=== PATIENT | male | born 1935 | race Caucasian/White ===

== ENCOUNTER 2018-02-21 20:36 | Emergency (ER) | payer OTHER ==
[~2018-02-21] VITALS: Ht 175.3 cm; Wt 79.4 kg
[~2018-02-21 20:36] MED LIST: FINA5TAB4 PO; IRBE150T28 PO
[2018-02-21 21:23] LABS: INR 0.84 (0.85-1.15)
[2018-02-21 21:25] LABS: CALCIUM, SERUM 9.5 mg/dL (8.5-10.1); CARBON DIOXIDE 29 mmol/L (21-32); CHLORIDE 102 mmol/L (98-107); CREATININE 0.8 mg/dL (0.6-1.3); GLUCOSE 107 mg/dL (74-106); POTASSIUM 4.1 mmol/L (3.5-5.1); SODIUM SERUM 138 mmol/L (136-145); UREA NITROGEN, BLOOD 19 mg/dL (7-18)
[2018-02-21] MEDS ORDERED: MECLIZINE HCL 25 MG TABLET PO ONE (22:00)
[2018-02-21 22:06] LABS: BASOPHILS % (AUTO) 0.3 % (0.0-2.0); EOSINOPHILS % (AUTO) 2.6 % (0.0-6.0); HEMATOCRIT 39 % (39-51); HEMOGLOBIN 13.5 g/dL (13.5-17.5); LYMPHOCYTES # (AUTO) 2.6 /CMM (0.8-4.8); LYMPHOCYTES % (AUTO) 22.4 % (20.0-44.0); MEAN CORPUSCULAR HGB CONC 35 g/dl (31.0-36.0); MEAN CORPUSCULAR VOLUME 94 fL (80-96); MONOCYTES % (AUTO) 8.9 % (2.0-12.0); NEUTROPHILS # (AUTO) 7.5 /CMM (1.8-8.9); NEUTROPHILS % (AUTO) 65.8 % (43.0-81.0); PLATELET COUNT (AUTO) 300 /CMM (150-450); RED BLOOD CELL COUNT(AUTO) 4.12 MIL/uL (4.5-6.0); WHITE BLOOD COUNT (AUTO) 11.4 K/uL (4.3-11.0)
[2018-02-21] MEDS ORDERED: MECLIZINE HCL 25 MG TABLET ONE (22:11)
[2018-02-21 22:23] VITALS: BP 147/69
== END 2018-02-21 22:24 | disposition home or self-care (01) ==
LOC: ER 20:44
DX: R42 Dizziness and giddiness (principal); E78.5 Hyperlipidemia, unspecified; I10 Essential (primary) hypertension; N40.0 Benign prostatic hyperplasia without lower urinary tract symptoms; Z88.8 Allergy status to other drugs, medicaments and biological substances; Z60.2 Problems related to living alone
CPT/HCPCS: 36415; 70450-TC; 80048-TC; 85025-TC; 85730-TC; A4606; J8597; Z7610

== ENCOUNTER 2019-01-08 11:42 | Emergency (ER) | payer OTHER ==
[~2019-01-08] VITALS: Ht 175.3 cm; Wt 84.4 kg
--- NOTE | 2019-01-08 12:35 | NUR ---
PT IV LINE ESTABLISHED, LABS DRAWNED AND SENT TO LAB.
[2019-01-08 12:56] LABS: BASOPHILS # (AUTO) 0.1 /CMM (0.0-0.2); BASOPHILS % (AUTO) 0.6 % (0.0-2.0); EOSINOPHILS % (AUTO) 1.4 % (0.0-6.0); HEMATOCRIT 40 % (39-51); HEMOGLOBIN 13.7 g/dL (13.5-17.5); LYMPHOCYTES % (AUTO) 19.1 % (20.0-44.0); MEAN CORPUSCULAR HGB CONC 34 g/dl (31.0-36.0); MEAN CORPUSCULAR VOLUME 97 fL (80-96); MONOCYTES % (AUTO) 9.9 % (2.0-12.0); NEUTROPHILS # (AUTO) 7.1 /CMM (1.8-8.9); PLATELET COUNT (AUTO) 297 /CMM (150-450); WHITE BLOOD COUNT (AUTO) 10.3 K/uL (4.3-11.0)
--- NOTE | 2019-01-08 13:06 | NUR ---
PT IS WHEELED TO CT SCAN VIA [facility].
[2019-01-08 13:07] LABS: CALCIUM, SERUM 9.5 mg/dL (8.5-10.1); CARBON DIOXIDE 31 mmol/L (21-32); CHLORIDE 105 mmol/L (98-107); CREATININE 0.9 mg/dL (0.6-1.3); GLUCOSE 91 mg/dL (74-106); POTASSIUM 4.2 mmol/L (3.5-5.1); SODIUM SERUM 139 mmol/L (136-145); UREA NITROGEN, BLOOD 21 mg/dL (7-18)
[2019-01-08 14:56] VITALS: BP 140/59
--- NOTE | 2019-01-08 14:56 | NUR ---
IV removed. Catheter intact and site benign. Pressure and 4x4 applied to site. No bleeding noted.Patient discharged to home in stable condition. Written and verbal after care instructions given. Patient verbalizes understanding of instruction.
== END 2019-01-08 14:57 | disposition home or self-care (01) ==
LOC: ER 11:46
DX: R51 Headache (principal); N40.0 Benign prostatic hyperplasia without lower urinary tract symptoms; F10.10 Alcohol abuse, uncomplicated; R00.1 Bradycardia, unspecified; Y90.9 Presence of alcohol in blood, level not specified; Z60.2 Problems related to living alone; Z98.890 Other specified postprocedural states; Z88.8 Allergy status to other drugs, medicaments and biological substances
CPT/HCPCS: 36415; 70450-TC; 80048-TC; 84484-TC; 85025-TC; 85652-TC

== ENCOUNTER 2021-12-16 03:46 | Emergency (ER) | payer OTHER ==
[~2021-12-16] VITALS: Ht 167.6 cm; Wt 70.8 kg
[2021-12-16 03:50] VITALS: BP 166/98
[2021-12-16] MEDS ORDERED: LIDOCAINE 2% JEL UROJET 10 ML MM ONE (03:55)
--- NOTE | 2021-12-16 04:06 | NUR ---
Fr 16 F/C INSERTED, YELLOW CLEAR URINE OUTPUT. URINE SAMPLE SENT TO LAB
--- NOTE | 2021-12-16 04:08 | NUR ---
URINE OUTPUT 450CC
--- NOTE | 2021-12-16 05:15 | NUR ---
Patient discharged to home in stable condition. Written and verbal after care instructions given. Patient verbalizes understanding of instruction. Pt ambulatory with a steady gait
[2021-12-16] MEDS ORDERED: CEPH500C2 PO ×2 (13:40→13:52)
== END 2021-12-16 05:15 | disposition home or self-care (01) ==
LOC: ER 03:49
DX: R33.9 Retention of urine, unspecified (principal); N40.0 Benign prostatic hyperplasia without lower urinary tract symptoms; I49.9 Cardiac arrhythmia, unspecified; Z87.710 Personal history of (corrected) hypospadias; Z88.8 Allergy status to other drugs, medicaments and biological substances; Z88.5 Allergy status to narcotic agent; Z79.811 Long term (current) use of aromatase inhibitors
CPT/HCPCS: J3490

== ENCOUNTER 2021-12-16 09:56 | Emergency (ER) | payer OTHER ==
[~2021-12-16] VITALS: Ht 175.3 cm; Wt 72.6 kg
--- NOTE | 2021-12-16 10:07 | NUR ---
LEAKING F/C CATHETER, REQUESTING F/C CHANGE
[2021-12-16 12:11] LABS: BILIRUBIN,URINE NEGATIVE (NEGATIVE); COLOR,URINE AMBER (YELLOW); LEUKOCYTE ESTERASE ,URINE SMALL (NEGATIVE); NITRITE, URINE POSITIVE (NEGATIVE); PH,URINE 6.5 (5.0-8.0); PROTEIN,URINE >=300 mg/dl (NEGATIVE); UGLUCOSE 100 MG/DL mg/dL (NEGATIVE)
[2021-12-16 13:15] LABS: RBC,URINE TOO NUMEROUS TO COUN /HPF (0-2)
[2021-12-16 13:16] LABS: BACTERIA,URINE None seen /HPF (None Seen); SQUAMOUS EPITHELIAL CELL,UR Rare /HPF (None Seen)
[2021-12-16] MEDS ORDERED: CEPH500C2 PO ×2 (13:40→13:52)
[2021-12-16] MEDS ORDERED: CEPHALEXIN MONOHYDRATE 500 MG CAPSULE PO ONE (14:00)
[2021-12-16 14:06] VITALS: BP 142/83
--- NOTE | 2021-12-16 14:06 | NUR ---
Patient discharged to home in stable condition. Written and verbal after care instructions given. Patient verbalizes understanding of instruction.
== END 2021-12-16 14:16 | disposition home or self-care (01) ==
LOC: ER 09:58
DX: T83.038A Leakage of other urinary catheter, initial encounter (principal); R33.9 Retention of urine, unspecified; N39.0 Urinary tract infection, site not specified; I49.9 Cardiac arrhythmia, unspecified; N40.0 Benign prostatic hyperplasia without lower urinary tract symptoms; Z88.8 Allergy status to other drugs, medicaments and biological substances; Z88.5 Allergy status to narcotic agent; Z79.811 Long term (current) use of aromatase inhibitors; Z79.818 Long term (current) use of other agents affecting estrogen receptors and estrogen levels
CPT/HCPCS: 81001; 87086-TC

== ENCOUNTER 2021-12-21 10:49 | Emergency (ER) | payer OTHER ==
[~2021-12-21] VITALS: Ht 170.2 cm; Wt 74.8 kg
[~2021-12-21 10:49] MED LIST changes: +CEPH500C2 PO
[2021-12-21 11:07] VITALS: BP 134/81
[2021-12-21] MEDS ORDERED: BACI/NEOM/POLY B OINT PKT 1 UDPKT PACKET TP ONE (12:00)
--- NOTE | 2021-12-21 12:01 | NUR ---
Patient discharged to home in stable condition. Written and verbal after care instructions given. Patient verbalizes understanding of instruction.
== END 2021-12-21 12:15 | disposition home or self-care (01) ==
LOC: ER 12:01
DX: T83.031A Leakage of indwelling urethral catheter, initial encounter (principal); N40.0 Benign prostatic hyperplasia without lower urinary tract symptoms; Z98.890 Other specified postprocedural states; Z88.8 Allergy status to other drugs, medicaments and biological substances; Z79.899 Other long term (current) drug therapy